=== PATIENT | male | born 1940 | race Caucasian/White ===

== ENCOUNTER 2022-11-01 08:19 | Emergency (ER) | payer MEDICARE, OTHER ==
--- NOTE | 2022-11-01 08:28 | ED General ---
General Chief Complaint: General Problems/Pain Stated Complaint: FATIGUE; MUSCLE STIFFNESS; TREMORS; TICK BITE History of Present Illness Date Seen by Provider: Nov 01, 2022 Time Seen by Provider: 08:28 Initial Comments 81 yr M with no significant PMH and not on any medications, who does not have a PCP, is here with c/o fatigue, myalgia, and some shakiness today morning. 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 Patient states that he drinks approximately 4 glasses of water a day which is not enough. Denies fever and chills, shortness of breath, chest pain, cough, runny nose, abdominal pain, diarrhea, nausea and vomiting. Allergies and Home Medications Allergies Coded Allergies: No Known Drug Allergies (Unverified , 11/01/22) Patient Home Medication List Home Medication List Reviewed: Yes Review of Systems Review of Systems Constitutional: see HPI, malaise EENTM: no symptoms reported Respiratory: no symptoms reported Cardiovascular: no symptoms reported Gastrointestinal: no symptoms reported Genitourinary: no symptoms reported Musculoskeletal: other (Myalgia) Skin: no symptoms reported Psychiatric/Neurological: No Symptoms Reported Hematologic/Lymphatic: No Symptoms Reported Immunological/Allergic: no symptoms reported Physical Exam Vital Signs Vital Signs - First Documented 11/01/22 08:25 Temp 35.8 Pulse 69 Resp 16 B/P (MAP) 127/66 (86) Pulse Ox 95 O2 Delivery Room Air Capillary Refill : Height, Weight, BMI Height: '" Weight: lbs. oz. kg; BMI Method: General Appearance: No Apparent Distress, WD/WN HEENT: PERRL/EOMI, Normal ENT Inspection, Pharynx Normal Neck: Full Range of Motion, Normal Inspection, Non Tender, Supple Respiratory: Chest Non Tender, Lungs Clear, Normal Breath Sounds, No Accessory Muscle Use Cardiovascular: Regular Rate, Rhythm, No Edema Gastrointestinal: Normal Bowel Sounds, Non Tender, Soft Back: No CVA Tenderness Extremity: Normal Range of Motion Neurologic/Psychiatric: Alert, Oriented x3, No Motor/Sensory Deficits, Normal M ood/Affect Skin: Normal Color Focused Exam Lactate Level 11/01/22 08:55: Lactic Acid Level 1.19 Lactic Acid Level Laboratory Tests Test 11/01/22 08:55 Lactic Acid Level 1.19 MMOL/L (0.50-2.00) Progress/Results/Core Measures Suspected Sepsis SIRS Temperature: Pulse: Respiratory Rate: Laboratory Tests 11/01/22 08:55: White Blood Count 4.8 Blood Pressure / Mean: 11/01/22 08:55: Lactic Acid Level 1.19 Laboratory Tests 11/01/22 08:55: Creatinine 1.07, Platelet Count 183, Total Bilirubin 0.3 Results/Orders Lab Results Laboratory Tests Test 11/01/22 08:55 11/01/22 08:58 Range/Units White Blood Count 4.8 4.3-11.0 10^3/uL Red Blood Count 5.40 4.30-5.52 10^6/uL Hemoglobin 16.3 13.3-17.7 g/dL Hematocrit 47 40-54 % Mean Corpuscular Volume 88 80-99 fL Mean Corpuscular Hemoglobin 30 25-34 pg Mean Corpuscular Hemoglobin Concent 35 32-36 g/dL Red Cell Distribution Width 13.0 10.0-14.5 % Platelet Count 183 130-400 10^3/uL Mean Platelet Volume 8.8 L 9.0-12.2 fL Immature Granulocyte % (Auto) 0 % Neutrophils (%) (Auto) 73 42-75 % Lymphocytes (%) (Auto) 13 12-44 % Monocytes (%) (Auto) 13 H 0-12 % Eosinophils (%) (Auto) 0 0-10 % Basophils (%) (Auto) 1 0-10 % Neutrophils # (Auto) 3.5 1.8-7.8 10^3/uL Lymphocytes # (Auto) 0.6 L 1.0-4.0 10^3/uL Monocytes # (Auto) 0.6 0.0-1.0 10^3/uL Eosinophils # (Auto) 0.0 0.0-0.3 10^3/uL Basophils # (Auto) 0.0 0.0-0.1 10^3/uL Immature Granulocyte # (Auto) 0.0 0.0-0.1 10^3/uL Sodium Level 136 135-145 MMOL/L Potassium Level 4.0 3.6-5.0 MMOL/L Chloride Level 104 98-107 MMOL/L Carbon Dioxide Level 23 21-32 MMOL/L Anion Gap 9 5-14 MMOL/L Blood Urea Nitrogen 15 7-18 MG/DL Creatinine 1.07 0.60-1.30 MG/DL Estimat Glomerular Filtration Rate 70 BUN/Creatinine Ratio 14 Glucose Level 142 H 70-105 MG/DL Lactic Acid Level 1.19 0.50-2.00 MMOL/L Calcium Level 9.4 8.5-10.1 MG/DL Corrected Calcium 9.4 8.5-10.1 MG/DL Magnesium Level 2.1 1.6-2.4 MG/DL Total Bilirubin 0.3 0.1-1.0 MG/DL Aspartate Amino Transf (AST/SGOT) 22 5-34 U/L Alanine Aminotransferase (ALT/SGPT) 18 0-55 U/L Alkaline Phosphatase 86 40-136 U/L Total Protein 6.4 6.4-8.2 GM/DL Albumin 4.0 3.2-4.5 GM/DL Urine Color YELLOW Urine Clarity CLEAR Urine pH 5.5 5-9 Urine Specific [place] 1.015 L 1.016-1.022 Urine Protein NEGATIVE NEGATIVE Urine Glucose (UA) NEGATIVE NEGATIVE Urine Ketones NEGATIVE NEGATIVE Urine Nitrite NEGATIVE NEGATIVE Urine Bilirubin NEGATIVE NEGATIVE Urine Urobilinogen 0.2 < = 1.0 MG/DL Urine Leukocyte Esterase TRACE H NEGATIVE Urine RBC (Auto) 2+ H NEGATIVE Urine RBC 50-100 H /HPF Urine WBC RARE /HPF Urine Squamous Epithelial Cells NONE /HPF Urine Crystals NONE /LPF Urine Bacteria LARGE H /HPF Urine Casts NONE /LPF Urine Mucus MODERATE H /LPF Urine Culture Indicated YES My Orders Orders - FELICIA VEGA MD Ua Culture If Indicated (11/01/22 08:28) Cbc With Automated Diff (11/01/22 08:34) Comprehensive Metabolic Panel (11/01/22 08:34) Lactic Acid Analyzer (11/01/22 08:34) Magnesium (11/01/22 08:34) Probnp Fs (11/01/22 08:34) Lyme Antibody Igg And Igm (11/01/22 08:35) Tick Panel With Lyme Eia (11/01/22 08:35) Ed Iv/Invasive Line Start (11/01/22 08:59) Ns Iv 1000 Ml (Sodium Chloride 0.9%) (11/01/22 09:00) Urine Culture (11/01/22 08:58) Vital Signs/I&O 11/01/22 08:25 Temp 35.8 Pulse 69 Resp 16 B/P (MAP) 127/66 (86) Pulse Ox 95 O2 Delivery Room Air Capillary Refill : Progress Note : Progress Note 1. DEHYDRATION :ACUTE CYSTITIS: - CBC: normal - CMP: unremarkable - UA positive for leukocyte esterase, RBC, and bacteria -Patient has not been drinking enough water especially since patient is working long hours out doors in the heat. The decreased fluid intake has caused dehydration and also triggered a UTI. -Prescription given for Keflex 500 mg twice daily for 5 days - Advised patient to be drinking 8 to 10 glasses of water a day, and vegetables and fruit with a high water content such as iceberg lettuce, watermelon, cucumbers, etc. -Advised patient to make an appointment with a PCP within the next 7 to 10 days and establish care. -The patient was seen in the ED, and treated appropriately to presentation at a specific point in time. Patient is informed that there is a possibility that dis ease and illness can evolve and change in acuity rapidly or slowly after patient is discharged from the ER. Precautionary advice given to the patient for immediate return to ER if symptoms worsen or do not resolve, and to seek emergency care sooner rather than later. Pt also advised on the importance of PCP follow up and compliance with management and follow up plan with PCP and/or specialist, as this is part of the management plan. Pt verbally expressed understanding. Departure Impression Primary Impression: Dehydration Additional Impression: Acute cystitis with hematuria Disposition: 01 HOME, SELF-CARE Condition: Improved Departure-Patient Inst. Referrals: NO,LOCAL PHYSICIAN (PCP/Family) Primary Care Physician Patient Instructions: Dehydration, Adult ED, Urinary tract infections in adults, Acute Cystitis (DC), Why Water Is Important to Health Add. Discharge Instructions: -Prescription given for Keflex 500 mg twice daily for 5 days - Advised patient to be drinking 8 to 10 glasses of water a day, and vegetables and fruit with a high water content such as iceberg lettuce, watermelon, cucumbers, etc. -Advised patient to make an appointment with a PCP within the next 7 to 10 days and establish care. All discharge instructions reviewed with patient and/or family. Voiced understanding. Scripts Cephalexin (Cephalexin) 500 Mg Tablet 500 MG PO BID for 5 Days, #10 TAB Prov: FELICIA VEGA MD 11/01/22 FELICIA VEGA MD Nov 01, 2022 08:28
[2022-11-01 08:57] LABS: BASOPHILS % (AUTO) 1 % (0-10); EOSINOPHILS % (AUTO) 0 % (0-10); HEMATOCRIT 47 % (40-54); HEMOGLOBIN 16.3 g/dL (13.3-17.7); LYMPHOCYTES # (AUTO) 0.6 10^3/uL (1.0-4.0); LYMPHOCYTES % (AUTO) 13 % (12-44); MEAN CORPUSCULAR HEMOGLOBIN 30 pg (25-34); MEAN CORPUSCULAR HGB CONC 35 g/dL (32-36); MEAN CORPUSCULAR VOLUME 88 fL (80-99); MEAN PLATELET VOLUME 8.8 fL (9.0-12.2); MONOCYTES # (AUTO) 0.6 10^3/uL (0.0-1.0); MONOCYTES % (AUTO) 13 % (0-12); NEUTROPHILS # (AUTO) 3.5 10^3/uL (1.8-7.8); NEUTROPHILS % (AUTO) 73 % (42-75); PLATELET COUNT 183 10^3/uL (130-400); WHITE BLOOD COUNT 4.8 10^3/uL (4.3-11.0)
[2022-11-01] MEDS ORDERED: NS IV 1000 ML 1,000 ML IV SCH (09:00)
[2022-11-01 09:03] LABS: BILIRUBIN,URINE NEGATIVE (NEGATIVE); CLARITY,URINE CLEAR; COLOR,URINE YELLOW; GLUCOSE, URINE (UA) NEGATIVE (NEGATIVE); KETONES,URINE NEGATIVE (NEGATIVE); LEUKOCYTE ESTERASE ,URINE TRACE (NEGATIVE); NITRITE,URINE NEGATIVE (NEGATIVE); PH,URINE 5.5 (5-9); PROTEIN,URINE NEGATIVE (NEGATIVE)
[2022-11-01 09:07] LABS: BACTERIA,URINE LARGE /HPF; RBC,URINE 50-100 /HPF; WBC,URINE RARE /HPF
[2022-11-01 09:20] LABS: BILIRUBIN,TOTAL 0.3 MG/DL (0.1-1.0); CALCIUM 9.4 MG/DL (8.5-10.1); CREATININE SERUM 1.07 MG/DL (0.60-1.30); MAGNESIUM 2.1 MG/DL (1.6-2.4); TOTAL PROTEIN 6.4 GM/DL (6.4-8.2)
[2022-11-01] MEDS ORDERED: CEPH500T PO (09:46)
[2022-11-01 09:48] VITALS: BP 101/57
== END 2022-11-01 09:48 | disposition home or self-care (01) ==
LOC: EDUNIT# 08:19 → ER FS 08:22
DX: E86.0 Dehydration (principal); N30.01 Acute cystitis with hematuria; Z28.310 Unvaccinated for COVID-19
CPT/HCPCS: 36415; 80053; 81000; 83605; 83735; 83880; 85025; 86618; 86666; 86668; 86757; 87088